=== PATIENT | female | born 1990 | race Caucasian/White ===

== ENCOUNTER → 2019-12-16 14:15 | Outpatient (CLI) | payer OTHER, SELFPAY ==
--- NOTE | 2019-12-16 14:17 | DI.US.S_ITS ---
PROCEDURE: US OB >= 14 WEEKS FETUS INDICATIONS: ANATOMY OUTSIDE/PRIOR DATING DATA: Last menstrual period (LMP): 08/05/19. LMP-based estimated date of delivery (DAVID): 05/11/20. First dating scan (date and location): 12/16/19. Estimated date of delivery (DAVID) from first dating scan: 05/05/20. TECHNIQUE: Real-time scanning was performed of the fetus, with image documentation and biometric measurements. Endovaginal scanning: No COMPARISON: [facility], , OB >= 14 WEEKS FETUS, 11/12/2019, 11:01. FINDINGS: General: A single living intrauterine gestation is present. Presentation: Breech. Placenta: Placental position is posterior, without previa. Amniotic fluid index: 3.9 cm, normal range is 5-24 cm. heart rate: 139 beats per minute. Maternal cervical canal: 4.1 cm long. Normal lower limit is 2.5 cm. biometrics: Biparietal diameter: 20 weeks 2 days Head circumference: 19 weeks 6 days Abdominal circumference: 19 weeks 5 days Femur length: 19 weeks 3 days Estimated gestational age from initial scan: not applicable. Composite gestational age from present scan: 19 weeks 6 days Estimated weight and percentile: 304 g; 82nd percentile Measurement variability for biometric dating: +/- 7 days from 14 weeks to 15 weeks 6 days gestation, +/- 10 days from 16 weeks to 21 weeks 6 days gestation, +/- 2 weeks from 22 weeks to 27 weeks 6 days gestation, +/- 3 weeks for 28 weeks gestation or later. weight reference: 4500 g or EFW >90/95% is considered macrosomia or large for gestational age. EFW <10% is small for gestational age. EFW 5% or less is considered intra-uterine growth restriction. Anatomic survey: Neuro: Ventricles are non-dilated at less than 10 mm. Cisterna magna is normal at 3-11 mm. Cerebellum is normal in size and morphology. Nuchal skin fold: Normal at less than 6 mm between 14-21 weeks gestational age. Face: Nose and lips, facial profile are normal. Spine: No evidence for spina bifida. Heart: 4-chambered heart is present, with normal ventricular outflow tracts. Diaphragm: Diaphragm is intact. Stomach: Left-sided stomach is present. Kidneys: No hydronephrosis. Normal is less than 5 mm in 2nd trimester, less than 7 mm in 3rd trimester. Cord: 3-vessel cord has orthotopic insertion. Bladder: Normal in size. Extremities: All 4 extremities identified. IMPRESSION: 1. Single living IUP with mean composite gestational age of 19 weeks 6 days corresponding to ultrasound DAVID of 05/05/20. 2. Normal anatomic survey. Dictated by: Pato Rivera RRA Interpreted: Rebecca Reed MD on 12/16/2019 at 15:33 Approved by: Rebecca Reed MD, PhD on 12/16/2019 at 16:47
== END ==
PROVIDERS: PCP Registered Nurse Diabetes Educator; Referring Provider Obstetrics & Gynecology; Visit Provider Obstetrics & Gynecology
DX: Z34.82 Encounter for supervision of other normal pregnancy, second trimester (principal); Z3A.19 19 weeks gestation of pregnancy
CPT/HCPCS: 76811

== ENCOUNTER 2019-12-25 23:04 | Outpatient (CLI) | payer OTHER, SELFPAY | END 2019-12-25 23:30 | disposition home or self-care (01) | LOC: OB 12-27 15:25 | PROVIDERS: PCP Registered Nurse Diabetes Educator; Referring Provider Nurse Practitioner Obstetrics & Gynecology; Visit Provider Nurse Practitioner Obstetrics & Gynecology | DX: O36.8120 Decreased fetal movements, second trimester, not applicable or unspecified (principal); Z3A.20 20 weeks gestation of pregnancy | CPT/HCPCS: 76815; G0378; G0379 ==

== ENCOUNTER → 2020-02-09 11:51 | Outpatient (CLI) | payer OTHER, SELFPAY ==
[2020-02-09 14:32] LABS: Hematocrit 36.3 % (36-46); Hemoglobin 12.4 g/dL (12.0-16.0)
[2020-02-09 16:38] LABS: GTT (PREG) 1 Hour PP 50gm Dose 147 mg/dL (76-139)
== END ==
PROVIDERS: Referring Provider Obstetrics & Gynecology; Visit Provider Obstetrics & Gynecology
DX: Z34.82 Encounter for supervision of other normal pregnancy, second trimester (principal); Z3A.23 23 weeks gestation of pregnancy
CPT/HCPCS: 36415; 82950; 85014; 85018

== ENCOUNTER 2020-02-17 18:09 | Emergency (ER) | payer OTHER, SELFPAY ==
[2020-02-17 18:26] VITALS: BP 119/72; PULSE 87; RESP 12; TEMP 36.2; O2SAT 98; BMI 31.9
--- NOTE | 2020-02-17 18:32 | DI.RAD.S_ITS ---
PROCEDURE: XR TOE RT MIN 2V INDICATIONS: dropped carseat on right big toe TECHNIQUE: 3 views of the right 1st and 2nd toe(s) acquired. COMPARISON: None. FINDINGS: Bones: No fractures or dislocations. No suspicious bony lesions. Soft tissues: No suspicious soft tissue densities. IMPRESSION: No evidence acute bony abnormality of the right great toe. Dictated by: Prince Johnson M.D. on 02/17/2020 at 19:04 Approved by: Prince Johnson M.D. on 02/17/2020 at 19:05
--- NOTE | 2020-02-17 19:40 | PC.NURSE ---
Patient sitting in lobby hanging in there thanked patient for having patience with us. Reassured we would get her back orion
--- NOTE | 2020-02-17 20:13 | ED.LOWEXIN ---
HPI - Extremity Injury (Lower) <ALDEN Marx - Last Filed: 02/17/20 21:29> General Chief Complaint: Extremity Injury, Lower Stated Complaint: right foot, big toe, thinks Fx Time Seen by Provider: 02/17/20 19:32 Source: patient Mode of arrival: Ambulatory History of Present Illness HPI Narrative: 29yo female who is currently 27 weeks , presents to the emergency department for right big toe pain. She states she dropped a car seat on it today. She noted some bleeding to the area. Patient states the pain is worse when she applies weight to the area, reports throbbing. Patient denies any pus, foot pain, fevers, chills, nausea, vomiting, diarrhea, or other concerns. Related Data Home Medications Medication Instructions Recorded Confirmed ondansetron HCl 4 mg tablet 4 mg PO Q6H 11/10/19 02/11/20 prenat.vits,gaurav,evx-rxgk-jjndc 1 tab PO DAILY 11/10/19 02/11/20 Previous Rx's Medication Instructions Recorded docusate sodium 100 mg capsule 100 mg PO BID #60 cap 11/12/19 Allergies Allergy/AdvReac Type Severity Reaction Status Date / Time watermelon AdvReac Intermediate Scratchy Verified 02/11/20 09:10 Throat - lasts the whole day Review of Systems <ALDEN Marx - Last Filed: 02/17/20 21:29> Review of Systems Narrative: REVIEW OF SYSTEMS: GENERAL: Denies fever or chills. HENT: Denies head trauma. EYE: Denies double vision or vision loss. CARDIOVASCULAR: Denies syncope. MUSCULOSKELETAL: Denies weakness, or deformities. INTEGUMENTARY: Complains of toe pain, see HPI. NEURO: Denies numbness or tingling. Patient History <ALDEN Marx - Last Filed: 02/17/20 21:29> Medical History Constipation (Acute) Fractured great toe (Acute) Hemorrhoid (Acute ~2017) (spontaneous vaginal delivery) (Acute ~2016) Surgical History Anesthesia (Resolved) Hx of LASIK (Acute ~2015) [place] teeth extracted (Acute ~2011) Family History Grandmother Fibromyalgia Hypertension Mother PTSD (post-traumatic stress disorder) Father PTSD (post-traumatic stress disorder) Grandfather Colon polyps COPD (chronic obstructive pulmonary disease) Grandmother Blood clot in vein Stroke Heavy smoker Grandfather Family estrangement Brother PTSD (post-traumatic stress disorder) Sister SIDS (sudden syndrome) Social History marital status: number of children: 1 household members: spouse pets and animals: Yes (puppy! ) education level: college (Ass. 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 Answers questions promptly and appropriately. Vital signs noted. HENT: Normocephalic, atraumatic. EYES: Symmetrical, sclera white, no periorbital swelling. CARDIOVASCULAR: Regular rate. RESPIRATORY: Normal respiratory rate, trachea midline, airway patent. No stridor, nasal flaring or accessory muscle use. MUSCULOSKELETAL: Tenderness, moderate amount of swelling, ecchymosis noted to the tip of right large toe. Small amount of bleeding noted to medial aspect of toenail, toenail intact without moving. No foot pain with palpation. Normal gait and coordination. Equal tone and mass bilaterally. EXTREMITIES: CMS intact. No pedal edema. SKIN: Warm, dry, soft, appropriate color for ethnicity. No lesions, rashes, or wounds. NEURO: Alert and Oriented X 3. No sensory deficits. PSYCH: Appropriate affect and mood. <Viktor Bridges DO - Last Filed: 02/17/20 22:47> Initial Vital Signs Initial Vital Signs: Vital Signs Temperature 97.1 F L 02/17/20 18:26 Pulse Rate 87 02/17/20 18:26 Respiratory Rate 12 02/17/20 18:26 Blood Pressure 119/72 02/17/20 18:26 Pulse Oximetry 98 02/17/20 18:26 Course <ALDEN Marx - Last Filed: 02/17/20 21:29> Course Course Narrative: Ice applied. Orders Ordered: ED Orders 02/17/20 18:32 XR toe RT min 2V Stat Discontinued Medications Bacitracin (Bacitracin) 1 applic TOP NOW ONE Stop: 02/17/20 20:14 Last Admin: 02/17/20 20:16 Dose: 1 applic Documented by: FABRIZIO Vital Signs Vital signs: Vital Signs - 8 hr 02/17/20 18:26 02/17/20 20:17 Temperature 97.1 F L Pulse Rate 87 82 Respiratory Rate 12 Blood Pressure 119/72 123/65 Pulse Oximetry 98 98 <Viktor Bridges DO - Last Filed: 02/17/20 22:47> Orders Ordered: ED Orders 02/17/20 18:32 XR toe RT min 2V Stat Discontinued Medications Bacitracin (Bacitracin) 1 applic TOP NOW ONE Stop: 02/17/20 20:14 Last Admin: 02/17/20 20:16 Dose: 1 applic Documented by: FABRIZIO Vital Signs Vital signs: Vital Signs - 8 hr 02/17/20 18:26 02/17/20 20:17 Temperature 97.1 F L Pulse Rate 87 82 Respiratory Rate 12 Blood Pressure 119/72 123/65 Pulse Oximetry 98 98 MDM - Extremity Injury (Lower) <ALDEN Marx - Last Filed: 02/17/20 21:29> Medical Records Attestation: I reviewed the patient's medical records. Lab Data Attestation: I reviewed the patient's lab results. Imaging Data Toe x-ray: Radiologist's Impression: [address] [id number] XRay Report Signed Patient: Simran Ge BMR#: [id number] : 1990Acct:[id number] Age/Sex: 29 / FDate of Service: 02/17/20 Loc: ED Accession Number: [id number] Procedure: XR toe RT min 2V Ordering Provider: Viktor Bridges D.O. PROCEDURE: XR TOE RT MIN 2V INDICATIONS: dropped carseat on right big toe TECHNIQUE: 3 views of the right 1st and 2nd toe(s) acquired. COMPARISON: None. FINDINGS: Bones: No fractures or dislocations. No suspicious bony lesions. Soft tissues: No suspicious soft tissue densities. IMPRESSION: No evidence acute bony abnormality of the right great toe. Dictated by: Prince Johnson M.D. on 02/17/2020 at 19:04 Approved by: Prince Johnson M.D. on 02/17/2020 at 19:05 [facility] Narrative Medical decision making narrative: History and examination consistent with toe contusion. X-ray negative for any fractures. Nail intact without severe injury. Patient was encouraged to use child for pain given , ice water baths for given to help with his swelling, she was encouraged to elevate toe. Follow-up was discussed. Patient agreed to plan of care verbalized understanding Discharge Plan Departure Patient Disposition: Home Clinical Impression: Chronic toe pain, right foot Discharge Date/Time: 02/17/20 20:33 Activity Restrictions/Additional Instructions: Thank you for entrusting me with your care today. As discussed, your x-rays negative for fractures. I recommend ice baths and icing her toes much possible to help with throbbing. You can use Tylenol as needed for pain. Elevated your foot as much as possible. Where she was with a hard bottom to help support your toe Watch for signs of infection such as pus, redness, or swelling, this occurs please return emergency department immediately. Prescriptions: No Action docusate sodium [Colace] 100 mg capsule 100 mg PO BID Qty: 60 RF: 3 prenat.vits,gaurav,iao-hxui-fuqmd Tablet 1 tab PO DAILY RF: 0 ondansetron HCl [Zofran] 4 mg tablet 4 mg PO Q6H RF: 0 Referrals: Viola Monteiro MD [Primary Care Provider] - <Viktor Bridges DO - Last Filed: 02/17/20 22:47> Cosign ED Attending Cosignature Attestation: Dr Bridges Co-Sign Statement: I was available for consultation during this patient's emergency department visit. This chart is signed by myself for administrative purposes only. I did not have direct contact with this patient during this visit. They were seen independently by the APC.
[2020-02-17] MEDS: BACITRACIN OINT 0.9 GM PCKT 1 APPLIC TOP (20:16)
[2020-02-17 20:17] VITALS: BP 123/65; PULSE 82; O2SAT 98
== END 2020-02-17 20:33 | disposition home or self-care (01) ==
PROVIDERS: Emergency Provider Nurse Practitioner; PCP Obstetrics & Gynecology; Referring Provider Obstetrics & Gynecology
DX: M79.674 Pain in right toe(s) (principal)
CPT/HCPCS: 73660; 99283

== ENCOUNTER → 2020-02-18 07:52 | Outpatient (CLI) | payer OTHER, SELFPAY ==
[2020-02-18 09:18] LABS: Glucose Fasting Gestational 72 mg/dL (76-95)
[2020-02-18 11:17] LABS: Glucose Tol Interp,Gestational INTERPRETATION
[2020-02-18 11:29] LABS: Glucose 1 Hour Gest 170 mg/dL (76-180)
[2020-02-18 11:44] LABS: Glucose 2 Hour Gest 128 mg/dL (76-155)
[2020-02-18 13:25] LABS: Glucose 3 Hour Gest 91 mg/dL (76-140)
== END ==
PROVIDERS: PCP Obstetrics & Gynecology; Referring Provider Obstetrics & Gynecology; Visit Provider Obstetrics & Gynecology
DX: O99.810 Abnormal glucose complicating pregnancy (principal)
CPT/HCPCS: 36415; 82951; 82952

== ENCOUNTER 2020-03-28 14:45 | Outpatient (CLI) | payer OTHER, SELFPAY ==
--- NOTE | 2020-03-28 15:23 | P.TNLD_ITS ---
Visit Information Visit Information Date of evaluation: 03/28/20 Primary OB Provider: Viola Monteiro Reason for Evaluation: Yes non-stress test Comments/Additional reasons for admission: Patient sent for NST for decreased but stable movement. [facility] Medical History Constipation (Acute) Fractured great toe (Acute) Hemorrhoid (Acute ~2017) (spontaneous vaginal delivery) (Acute ~2017) Surgical History Anesthesia (Resolved) Hx of LASIK (Acute ~2015) [place] teeth extracted (Acute ~2011) Family History Grandmother Fibromyalgia Hypertension Mother PTSD (post-traumatic stress disorder) Father PTSD (post-traumatic stress disorder) Grandfather Colon polyps COPD (chronic obstructive pulmonary disease) Grandmother Blood clot in vein Stroke Heavy smoker Grandfather Family estrangement Brother PTSD (post-traumatic stress disorder) Sister SIDS (sudden infant syndrome) Social History marital status: number of children: 1 household members: spouse pets and animals: Yes (puppy! ) education level: college (Ass. 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 OB Disposition: home
== END 2020-03-28 15:26 | disposition home or self-care (01) ==
LOC: OB 03-29 11:21
PROVIDERS: PCP Obstetrics & Gynecology; Referring Provider Obstetrics & Gynecology; Visit Provider Obstetrics & Gynecology
DX: O36.8130 Decreased fetal movements, third trimester, not applicable or unspecified (principal); Z3A.33 33 weeks gestation of pregnancy
CPT/HCPCS: 59025; G0378; G0379

== ENCOUNTER → 2020-04-14 10:57 | Outpatient (CLI) | payer OTHER, SELFPAY ==
[2020-04-15 08:15] LABS: Strep Grp B PCR NEG for Grp B Strep
== END ==
PROVIDERS: PCP Obstetrics & Gynecology; Visit Provider Obstetrics & Gynecology
DX: Z3A.36 36 weeks gestation of pregnancy (principal)
CPT/HCPCS: 87653

== ENCOUNTER 2020-04-27 12:16 | Outpatient (CLI) | payer OTHER, SELFPAY ==
--- NOTE | 2020-04-27 17:23 | PM.OBTRLD ---
Visit Information Visit Information Date of evaluation: 04/27/20 Primary OB Provider: Viola Monteiro Reason for Evaluation: Yes non-stress test Comments/Additional reasons for admission: Patient sent for NST as part of evaluation for unclear history of decreased movement. Patient reported copious movement on Labor and delivery. Vital Signs Vital Signs: S [facility] Medical History Constipation (Acute) Fractured great toe (Acute) Hemorrhoid (Acute ~2017) (spontaneous vaginal delivery) (Acute ~2016) Surgical History Anesthesia (Resolved) Hx of LASIK (Acute ~2015) [place] teeth extracted (Acute ~2011) Family History Grandmother Fibromyalgia Hypertension Mother PTSD (post-traumatic stress disorder) Father PTSD (post-traumatic stress disorder) Grandfather Colon polyps COPD (chronic obstructive pulmonary disease) Grandmother Blood clot in vein Stroke Heavy smoker Grandfather Family estrangement Brother PTSD (post-traumatic stress disorder) Sister SIDS (sudden infant syndrome) Social History marital status: number of children: 1 household members: spouse pets and animals: Yes (puppy! ) education level: college (Ass. 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
[2020-05-04 08:01] LABS: COVID19 Sendout Not Detected (Not Detect)
== END 2020-04-27 12:45 | disposition home or self-care (01) ==
LOC: OB 04-28 11:27
PROVIDERS: PCP Obstetrics & Gynecology; Referring Provider Obstetrics & Gynecology; Visit Provider Obstetrics & Gynecology
DX: O36.8130 Decreased fetal movements, third trimester, not applicable or unspecified (principal); Z3A.38 38 weeks gestation of pregnancy
CPT/HCPCS: 59025; 87635; G0378; G0379

== ENCOUNTER 2020-05-12 07:24 | Inpatient (IN) | payer OTHER, SELFPAY ==
[2020-05-12] MEDS: LACTATED RINGERS 1,000 ML 100 ML IV ×3 (08:12→14:54)
[2020-05-12] MEDS: OXYTOCIN PREMIX 30 UNIT/500 ML PLAST..BAG IV (08:13)
[2020-05-12 08:25] LABS: Add Manual Diff / Slide Review NO; Basophils Absolute Auto 0 /uL (0-100); Basophils Percent Auto 0.4 % (0-2); Eosinophils Absolute Auto 100 /uL (0-450); Eosinophils Percent Auto 1.2 % (2-4); Hemoglobin 12.4 g/dL (12.0-16.0); Lymphocytes Absolute Auto 1700 /uL (1100-4500); Lymphocytes Percent Auto 17.5 % (25-40); Mean Corpuscular HGB Conc 34.4 % (30-36); Mean Corpuscular Hemoglobin 30.9 PG (26-34); Mean Corpuscular Volume 89.7 fL (80-100); Monocytes Absolute Auto 700 /uL (0-900); Monocytes Percent Auto 7.1 % (3-14); Neutrophils Absolute Auto 7300 /uL (1500-7000); Neutrophils Percent Auto 73.8 % (50-75); Platelet Count 169 X10^3/uL (150-400); Red Blood Cell Count 4.01 X10^6/uL (4.0-5.2); Red Cell Distribution Width 12.5 % (11.6-14.8); White Blood Cell Count 9.9 X10^3/uL (4.5-11.0)
[2020-05-12 08:42] LABS: COVID19 -Nasal RAPID Negative (Negative)
--- NOTE | 2020-05-12 08:47 | P.HPOB_ITS ---
OB HPI Date/Time Date of admission: 05/12/20 Date Patient Seen: 05/12/20 Time Patient Seen: 08:47 History of Present Condition Chief complaint: observation of labor : 2 Para: 1 Estimated Date of Delivery: 05/11/20 Estimated Gestational Age (weeks): 40 Narrative: Simran Ge is a 29 year old 001 at 40 weeks 1 day presenting for elective induction of labor with a favorable cervix. The patient reports irregular contractions overnight but no loss of fluid or vaginal bleeding, good movement, no other symptoms obstetrical or otherwise. The patient has had an uncomplicated , and has a history of uncomplicated vaginal delivery. She is proven to 8 lb 7 oz, EFW is 9 lb. The patient's p artner return from deployment a few days ago. Indications Indication for induction OB: post dates and other (Partner deployment schedule) History of Present care: good care, initiated at week # (7), number of visits (16) and pounds weight gain (52) Dating criteria: LMP confirmed by 1st trimester US Ultrasounds: normal 1st trimester US and normal mid trimester US Obstetrical complications: none Medical complications: none Preadmission Labs Blood type: O (+) positive -: Antibody screen: negative, GBS status: negative, HBsAG: negative, HIV: negative and RPR/VDLR: negative -: Chlamydia screen: not detected and Gonorrhea screen: not detected -: Rubella: immune and Varicella: immune PAP: Normal Integrated screen: Patient did not have 2nd portion done, no results available, declined quad screen Urine: negative 1 hr GTT: 147 3 hr GTT: 1 hr (170), 2 hr (128) and 3 hr (91) Fasting blood glucose: 72 Prior (ies) History: G1: 10/14/16, 39+3, 8#7, M, , uncomplicated Evaluation Evaluation Baseline heart rate: 130 Variability: Moderate (11-25) monitor accelerations: Present monitor decelerations: Absent Contraction Frequency (minutes): 3 Uterine Contraction Intensity: Moderate Category of Tracing: Reactive Laboratory results: Laboratory Tests 05/12/20 05/12/20 07:30 07:30 WBC 9.9 RBC 4.01 Hgb 12.4 Hct 36.0 MCV 89.7 MCH 30.9 MCHC 34.4 RDW 12.5 Plt Count 169 Neut % (Auto) 73.8 Lymph % (Auto) 17.5 L [place] % (Auto) 7.1 Eos % (Auto) 1.2 L Baso % (Auto) 0.4 Neut # (Auto) 7300 H Lymph # (Auto) 1700 [place] # (Auto) 700 Eos # (Auto) 100 Baso # (Auto) 0 COVID-19 PCR Negative Comments: Of note, significant amount of paper tracing not archived in [facility] medical record, all category 1. PFSH Medical History Constipation (Acute) Fractured great toe (Acute) Hemorrhoid (Acute ~2016) (spontaneous vaginal delivery) (Acute ~2016) Surgical History Anesthesia (Resolved) Hx of LASIK (Acute ~2015) [place] teeth extracted (Acute ~2011) Family History Grandmother Fibromyalgia Hypertension Mother PTSD (post-traumatic stress disorder) Father PTSD (post-traumatic stress disorder) Grandfather Colon polyps COPD (chronic obstructive pulmonary disease) Grandmother Blood clot in vein Stroke Heavy smoker Grandfather Family estrangement Brother PTSD (post-traumatic stress disorder) Sister SIDS (sudden infant syndrome) Social History marital status: number of children: 1 household members: spouse pets and animals: Yes (puppy! ) education level: college (Ass. 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 Smoking Status: Never smoker second hand exposure: Yes (growing up ) alcohol intake: former (pre- : occasional ) substance use type: does not use Meds Home Medications and Allergies Home Medications Medication Instructions Recorded Confirmed Type prenat.vits,gaurav,pgm-emfl-epknf 1 tab PO DAILY 11/10/19 04/27/20 History docusate sodium 100 mg capsule 100 mg PO BID #60 cap 11/12/19 04/27/20 Rx Double Electric Breast Pump 1 each TOP .prn #1 each 03/13/20 04/27/20 Rx Allergies Allergy/AdvReac Type Severity Reaction Status Date / Time watermelon AdvReac Intermediate Scratchy Verified 04/27/20 11:49 Throat - lasts the whole day Review of Systems Constitutional Constitutional: Reports system reviewed and no additional complaints, except as documented Cardiovascular Cardiovascular: Reports system reviewed and no additional complaints, except as documented Respiratory Respiratory: Reports system reviewed and no additional complaints, except as documented Gastrointestinal Gastrointestinal: Reports system reviewed and no additional complaints, except as documented Genitourinary Genitourinary: Reports system reviewed and no additional complaints, except as documented Neurologic Neurologic: Reports system reviewed and no additional complaints, except as documented Exam Vital Signs (past 8 hours): VSS, reviewed in paper chart Const General: cooperative, healthy appearing and comfortable Resp Effort & Inspection: normal respiratory effort Auscultation: clear to auscultation bilaterally Cardio Rate: regular rate Rhythm: regular rhythm GI Palpation: soft and No tender Extrem General: normal to inspection Objective Labs Result Diagrams: 05/12/20 07:30 Labs: Laboratory Results - last 24 hr 05/12/20 05/12/20 07:30 07:30 WBC 9.9 RBC 4.01 Hgb 12.4 Hct 36.0 MCV 89.7 MCH 30.9 MCHC 34.4 RDW 12.5 Plt Count 169 Neut % (Auto) 73.8 Lymph % (Auto) 17.5 L [place] % (Auto) 7.1 Eos % (Auto) 1.2 L Baso % (Auto) 0.4 Neut # (Auto) 7300 H Lymph # (Auto) 1700 [place] # (Auto) 700 Eos # (Auto) 100 Baso # (Auto) 0 COVID-19 PCR Negative Assessment and Plan Assessment and Plan Assessment and Plan narrative: This patient is admitted for elective induction of labor with a favorable cervix as per exam in clinic yesterday afternoon. EFW is large, but induction was delayed until the patient's partner could return from deployment 2 days ago. The patient will be induced with Pitocin. Plan for AROM later this morning once Pitocin is well established. Anticipate vaginal delivery. - COVID19 rapid test, CBC, T&S pending - cEFM, toco - pitocin per protocol Time Spent with Patient Total time spent with greater than 50% in coordination of care (as documented) at patient's floor/unit and/or counseling patient:: 25 - 35 minutes
[2020-05-12 09:11] VITALS: BP 112/62
--- NOTE | 2020-05-12 10:28 | PM.OBPNLAB ---
Date/Time Date Patient Seen: 05/12/20 Time Patient Seen: 10:28 Pain Control Pain control: tolerating well Comments: Patient reports contractions are stronger but still managable. Pelvic Exam Dilation (cm): 4 Effacement (%): 80 station: -1 Amniotic membrane status: Ruptured (AROM, clear fluid) Contractions Pitocin rate (mU/min): 9 Contraction frequency (min): 2 Contraction pattern: Regular Contraction intensity: Moderate Status status: Category l Heart Rate Baseline: 120 Monitor Accelerations: Present Monitor Decelerations: Episodic (unclear if decel vs LOC in transition to wireless monitor) Monitor Variability: Moderate Assessment and Plan Assessment: induction ongoing Plan: continuous present management
--- NOTE | 2020-05-12 14:35 | PM.OBPNLAB ---
Date/Time Date Patient Seen: 05/12/20 Time Patient Seen: 14:35 Pelvic Exam Dilation (cm): 9 Effacement (%): 100 station: +1 Amniotic membrane status: Ruptured (AROM, clear fluid) Contractions Pitocin rate (mU/min): 0 Contraction frequency (min): 2 Contraction pattern: Regular Contraction intensity: Moderate Status status: Category ll Heart Rate Baseline: 110 Monitor Accelerations: Present (+scalp stim) Monitor Decelerations: Variable Monitor Variability: Moderate Assessment and Plan Assessment: induction ongoing Plan: continuous present management Comments: Anticipate - rapid cervical dilation.
--- NOTE | 2020-05-12 16:17 | P.PCNOB_ITS ---
Events: Labor Induction Labor & Delivery Delivery date: 05/12/20 Intrapartal events: Acceleration and Deceleration Cervical ripening method: none Induction method: per pitocin protocol Delivery augmentation: rupture of membranes Delivery monitor: external FHT and external uterine Route of delivery: L&D Laceration Description: Perineal - 2nd Degree Delivery repair: vicryl Estimated blood loss (mL): 250 Anesthesia type: Epidural Complications: This patient's delivery was complicated by an approximately 60 second shoulder dystocia. The head delivered in the PIERO presentation, and a loose nuchal cord was reduced at the perineum. Gentle traction did not achieve delivery of the left shoulder, and Lamas and Hare corkscrews were attempted while attendants moved the patient's legs into the Patience position. Suprapubic pressure was applied throughout. Delivery of the posterior arm was achieved and facilitated delivery of the anterior shoulder. The cord was clamped and cut without delayed cord clamping, and the infant handed off to the waiting nursing staff. Narrative: This patient was a 001 at 40 weeks 1 day who presented for ind uction of labor with a favorable cervix, shortly after the return of her partner who had been on deployment. EFW was in the high 8s-9 lb, and the patient was proven to 8 lb 7 oz. The patient had a favorable cervix and was induced with the Pitocin protocol, with augmentation with AROM. The patient progressed rapidly through active labor and after an approximately 40 minute pushing stage, was delivered of an 8 lb 14 oz baby boy a, loose nuchal reduced at the perineum, Apgars 9+9. The delivery was complicated by a shoulder dystocia as above. Placenta delivered spontaneously and intact shortly thereafter, and a second- degree perineal laceration was repaired with 3-0 Vicryl in the usual fashion. The patient received 30 milliunits of Pitocin per the usual protocol. There were no other intrapartum or immediate complications. [place] Baby 1: gender: Male Presentation: vertex position: Right Occiput Anterior Placenta delivery description: Spontaneous cord vessel description: 3 Vessels score (1 min): 9 score (5 min): 9 Plan for aftercare: Routine care
[2020-05-12] MEDS: DERMOPLAST SPRAY 20% 60 ML 1 SPRAY TOP (19:08)
[2020-05-12] MEDS: IBUPROFEN 600 MG TABLET PO (19:08)
[2020-05-12] MEDS: LANOLIN OINT 7 GM 1 APPLIC TOP (19:08)
[2020-05-13] MEDS: IBUPROFEN 600 MG TABLET PO ×3 (01:00→13:15)
[2020-05-13] MEDS: PRENATAL VIT,CALC/IRON/FOLIC 1 TABLET 1 TAB PO (07:26)
--- NOTE | 2020-05-13 08:58 | P.DS_ITS ---
Discharge Providers Provider Date of admission: 05/12/20 07:24 Discharge Date: 05/13/20 Primary care physician: Doctor Tonia MD Consults: 05/13/20 16:16 Consult to Transportation Dispatcher Routine Comment: Discharge provider: Viola Monteiro MD Summary Hospital Course Date Patient Seen: 05/13/20 Time Patient Seen: 08:59 Procedures: Hospital Course: This patient is a 29-year-old now para 2 who presented for postdates induction. She was induced with Pitocin and AROM, progressed through active labor rapidly, and was delivered of a healthy baby boy after short 2nd stage. Her delivery was complicated by 60 second shoulder dystocia, with delivery achieved after delivery of the posterior arm. A loose nuchal cord had been reduced at the perineum, and a second-degree perineal laceration was repaired with 3-0 Vicryl in the usual fashion. Both mom and baby did well after delivery, and were discharged on day 1 without complication. Peripartum Data Infant Delivery Method: Natural Vaginal Laceration Description: Perineal - 2nd Degree Procedures: complications: none 1: Gender: Male Disposition of : home Status at Discharge Cognitive/behavioral status at discharge: oriented Functional status at discharge: independent ambulation Overall status at discharge: patient is progressing back to baseline Time Spent with Patient Time attestation: Total time spent providing and/or coordinating discharge services: Time spent: Greater than 30 minutes Objective Labs Result Diagrams: 05/12/20 07:30 Labs: Laboratory Results - last 24 hr 05/12/20 07:30 Blood Type O Positive Antibody Screen Negative Exam Vital Signs (past 8 hours): 131/64, HR 73 Narrative Exam Narrative: Patient resting in bed with baby. Ambulating, tolerating p.o., good pain control, moderate lochia, voiding, passing flatus. Breast-feeding. No PIH complaints. Const General: cooperative, healthy appearing and comfortable Resp Effort & Inspection: normal respiratory effort Auscultation: clear to auscultation bilaterally Cardio Rate: regular rate Rhythm: regular rhythm GI Palpation: soft and No tender Other: Fundus firm, well below u External Female Exam: normal external appearance Extrem General: normal to inspection (trace pedal edema) Discharge Plan Discharge Plan Patient Disposition: Home Discharge orders & Medications Prescriptions: Continued docusate sodium [Colace] 100 mg capsule 100 mg PO BID Qty: 60 RF: 3 prenat.vits,gaurav,[id number] Tablet 1 tab PO DAILY RF: 0 Double Electric Breast Pump 1 each TOP .prn Qty: 1 RF: 0 Follow up/Referrals: Vioal Monteiro MD [Physician] - 6 Weeks () Doctor Randall MD [Primary Care Provider] - Diet/Activity/Treatments Diet: Regular Activity: Nothing in the vagina for 6 weeks. Avoid lifting more than 10 lb for 6 weeks. If you have increasing bleeding, fevers, chills, nausea, vomiting, headaches, visual changes, or any other symptoms or concerns, call or come to the emergency room. Skin/Wound/Dressing Care Report to your healthcare provider any signs of infection, such as:: chills, fever, night sweats, increased pain, unusual drainage and unusual redness Visit Report/Discharge Packet Instructions: DI for Labor and Delivery, Vaginal Discharge Data Primary Care Provider: Doctor Tonia Attending Provider: Viola Monteiro Admit Date/Time: 05/12/20 07:24
[2020-05-13 11:16] VITALS: BP 133/84; PULSE 96; RESP 17; TEMP 37.3
== END 2020-05-13 16:15 | disposition home or self-care (01) | DRG 807 ==
PROVIDERS: Admitting Provider Obstetrics & Gynecology; Referring Provider Obstetrics & Gynecology; Visit Provider Obstetrics & Gynecology
DX: O48.0 Post-term pregnancy (principal); Z37.0 Single live birth; Z3A.40 40 weeks gestation of pregnancy; O70.1 Second degree perineal laceration during delivery; O66.0 Obstructed labor due to shoulder dystocia; O69.81X0 Labor and delivery complicated by cord around neck, without compression, not applicable or unspecified; Z11.59 Encounter for screening for other viral diseases
CPT/HCPCS: 01967; 36415; 59050; 59400; 85025; 86850; 86900; 86901; 87635; G0378; G0379; J2590